=== PATIENT | male | born 1995 | race Two or more races ===

== ENCOUNTER 2023-05-26 23:29 | Emergency (ER) | payer MEDICAID ==
[~2023-05-26] VITALS: Ht 175.3 cm; Wt 72.7 kg
[2023-05-26 23:46] VITALS: TEMP 98.3
[2023-05-27] MEDS ORDERED: CEPH-558 PO (00:11)
[2023-05-27] MEDS ORDERED: DOXY-354 PO (00:11)
[2023-05-27] MEDS ORDERED: DOXYCYCLINE HYCLATE 100 MG TABLET PO ONE (00:15)
[2023-05-27] MEDS ORDERED: LIDOCAINE/PF 1% 2 ML VIAL IM ONE (00:15)
[2023-05-27] MEDS ORDERED: CefTRIAXone SODIUM 1 GM/VIAL IM ONE (00:15)
[2023-05-27 00:29] VITALS: BP 125/65; PULSE 92; RESP 16
== END 2023-05-27 00:32 | disposition home or self-care (01) ==
LOC: EMS 23:33
DX: L03.116 Cellulitis of left lower limb (principal); Z98.890 Other specified postprocedural states; Z88.2 Allergy status to sulfonamides
CPT/HCPCS: 99283; 96372; J0696; J3490